=== PATIENT | male | born 1985 | race Caucasian/White ===

== ENCOUNTER 2017-04-06 21:16 | Observation (INO) ==
[2017-04-07] MEDS ORDERED: *HR* Morphine 2 MG/ML SYRINGE IVP PRN (00:30)
[2017-04-07] MEDS ORDERED: Naloxone 0.4 MG/ML INJ IVP PRN (00:30)
[2017-04-07] MEDS ORDERED: Ondansetron 4 MG/2 ML VIAL IVP PRN (00:30)
[2017-04-07] MEDS ORDERED: Nitroglycerin 0.4 MG TAB.SUBL SL PRN (00:33)
[2017-04-07 00:54] LABS: Basophils # 0.1 K/mcL (0.0-0.2); Basophils % 0.5 %; Eosinophils # 0.4 K/mcL (0.0-0.6); Eosinophils % 4.1 %; Hematocrit 41.6 % (37.5-50.1); Hemoglobin 14.2 g/dL (12.9-16.9); Immature Granulocytes % 1.1 % (0-4); Lymphocytes # 2.2 K/mcL (0.6-4.6); Mean Corpuscular HGB Conc 34.1 g/dL (31.6-35.5); Mean Corpuscular Hemoglobin 29.2 pg (28.0-33.3); Mean Corpuscular Volume 85.6 fL (83.0-100.0); Mean Platelet Volume 8.5 fL (9.4-12.4); Monocytes # 0.5 K/mcL (0.0-1.3); Monocytes % 5.5 %; Neutrophils # 6.2 K/mcL (1.6-8.9); Platelet Count 202 K/mcL (140-400); Red Blood Count 4.86 M/mcL (4.19-5.50); Red Cell Distribution Width 13.4 % (11.5-14.5); Segmented Neutrophils % 65.8 %
[2017-04-07 01:10] LABS: BUN/Creatinine Ratio 10 (6-26); Blood Urea Nitrogen 9 mg/dL (6-20); Calcium 8.9 mg/dL (8.6-10.3); Carbon Dioxide 27 mEq/L (23-29); Chloride 105 mEq/L (98-107); Chol/HDL Ratio 7.1 (0-4.9); Cholesterol 268 mg/dL (< 200); Glucose 131 mg/dL (70-105); HDL Cholesterol 38 mg/dL (40-59); LDL Cholesterol,Calculated 194 mg/dL (0-99); Magnesium 2.1 mg/dL (1.6-2.6); Osmolality,Calculated 286 (280-300); Phosphorous 2.6 mg/dL (2.7-4.5); Potassium 3.6 mEq/L (3.5-5.1); Sodium 138 mEq/L (136-145); Triglycerides 180 mg/dL (< 150); eGFR For African Americans > 60 (> 60); eGFR For Non-African Americans > 60 (> 60)
[2017-04-07] MEDS: cloNIDine HCl 0.1 MG TABLET PO SCH ×2 (02:08→10:05)
[2017-04-07] MEDS: *HR* Heparin 5,000 UNIT/ML VIAL SQ SCH ×2 (04:24→17:59)
--- NOTE | 2017-04-07 04:26 | Internal Med History&Physical ---
Date of Encounter: 04/07/17 Time of Encounter: 04:01 Assessment and Plan (1) Chest pain Current visit: Yes Status: Acute Typical chest pain given history, will admit to rule out ACS serial TNI x 2 have been negative will obtain nuclear stress test in am f/u 2D echo consider cardiology evaluation if the above tests are abnormal ASA, Statin, BB, nitroglycerin SL Prn will continue to closely monitor NPO after midnight for stress test in am Qualifiers: Chest pain type: unspecified Qualified Code(s): R07.9 - Chest pain, unspecified (2) Hypertension Current visit: Yes Status: Chronic Initially hypertensive, but BP controlled after receiving home dose of antihypertensive medications Repeat BP within acceptable range continue home meds Qualifiers: Hypertension type: essential hypertension Qualified Code(s): I10 - Essential (primary) hypertension (3) Hyperlipidemia Current visit: Yes Status: Chronic continue home meds Qualifiers: Hyperlipidemia type: unspecified Qualified Code(s): E78.5 - Hyperlipidemia , unspecified (4) Elevated d-dimer Current visit: Yes Status: Acute noted to have elevated D-dimer CTA chest negative for PE will obtain b/l LE venous doppler to rule out DVT (5) DVT prophylaxis Current visit: Yes Status: Acute Heparin SQ (6) Morbid obesity with BMI of 45.0-49.9, adult Current visit: Yes Status: Chronic Internal Medicine - H&P: HPI Chief complaint: transfer from [facility] for chest pain Admitted From: Intrahospital Transfer Plans for Post Hospital Care: Home History of present illness: Mr. Elise is a 31 year old male with PMH of HTN, HLD, morbid obesity, CAD who is transferred from [facility] for further management of chest pain. Pt reported of having substernal pressure like chest pain with radiation to the left jaw that was relieved by SL nitroglycerin. He reports of family history of both parents having DC in their 20s and 30s. States his last LHC was three years ago which reported normal coronary arteries. At this time, he is resting in bed and reports of mild chest discomfort which has improved since hospitalization. Denies any palpitations, shortness of breath, nausea, or vomiting at this time. Past Med Surg Social Fam HX - Past Medical History Medical history: GERD, hyperlipidemia, hypertension, migraine, other Psychiatric history: no psych history - Social History Smoking Status: Never smoker Smokeless Tobacco Status: No Alcohol use: none Drug use: none - Family History Mother Hx Family Medical Disorders: Yes (DVTs) Internal Medicine - H&P: Meds Allopurinol [Zyloprim 100 MG] 100 mg PO BID 05/03/15 [History] Atorvastatin [Lipitor] 80 mg PO HS 05/03/15 [History] Ergocalciferol (VITAMIN D2) [Vitamin D2 (50,000 UNIT)] 50,000 unit PO 2XW [History] Ezetimibe [Zetia] 10 mg PO DAILY 05/03/15 [History] Fexofenadine HCl 180 mg PO DAILY 05/03/15 [History] Icosapent Ethyl [Vascepa] 1 gm PO BID 05/03/15 [History] Nabumetone 750 mg PO BID 05/03/15 [History] Nitroglycerin [Nitrostat] 0.4 mg SL PRN PRN 05/03/15 [History] Ranitidine HCl [Zantac] 150 mg PO BID 05/03/15 [History] amLODIPine [Norvasc] 5 mg PO DAILY 05/03/15 [History] Carvedilol [Coreg] 1.5 tab PO BID 04/06/17 [History] DULoxetine [Cymbalta] 60 mg PO DAILY 04/06/17 [History] Fluticasone Propionate Nasal [Flonase] 2 spray NS DAILY 04/06/17 [History] Ketoconazole 2% CRM [Nizoral Cream] 1 appl TP BID 04/06/17 [History] Losartan [Cozaar] 100 mg PO DAILY 04/06/17 [History] Potassium Chloride [Klor-Con 10] 2 tab PO DAILY 04/06/17 [History] Torsemide [Torsemide] 2 tab PO DAILY 04/06/17 [History] Isosorbide MONOnitrate (24 HR) [Imdur] 30 mg PO DAILY 04/07/17 [History] cloNIDine HCl [Clonidine HCl] 0.2 mg PO BID 04/07/17 [History] 3 Allergy/AdvReac Type Severity Reaction Status Date / Time meperidine [From Demerol] Allergy See Verified 05/03/15 16:04 Comments tetanus toxoid, adsorbed Allergy See Verified 05/03/15 16:04 Comments tramadol Allergy Rash Verified 04/06/17 18:46 All Systems PM: A 10-system review of systems was performed and is negative for pertinent findings except as documented above in the HPI. - Constitutional Constitutional: as per HPI - Constitutional Vitals: Temp Pulse Resp BP Pulse Ox 99.4 F 92 16 163/111 98 04/06/17 23:46 04/06/17 23:46 04/06/17 23:46 04/06/17 23:46 04/06/17 23:46 General appearance: Present: cooperative, A&O X 3, morbidly obese, no acute distress, answers questions appropriately - Head Head exam: Present: atraumatic, normocephalic - Respiratory Respiratory exam: Present: CTAB. Absent: respiratory distress, wheezes, tachypnea - Cardiovascular Cardiovascular exam: Present: RRR, +S1, +S2. Absent: diastolic murmur, gallop, rubs, systolic murmur - GI/Abdominal GI/Abdominal exam: Present: normal bowel sounds, soft, no peritoneal signs. Absent: distended, tenderness - Extremities Exam Extremities exam: Present: pedal edema (b/l LE edema), warm, radial pulses palpable and symmetrical. Absent: calf tenderness - Neurological Exam Neurological exam: Present: alert, oriented X3 - Psychiatric Psychiatric exam: Present: normal affect, normal mood Internal Med - H&P Results - Labs CBC & Chem 7: 04/07/17 00:45 04/07/17 00:45 Labs: Short CBC 04/07/17 Range/Units 00:45 WBC 9.5 (4.3-11.1) K/mcL Hgb 14.2 (12.9-16.9) g/dL Hct 41.6 (37.5-50.1) % Plt Count 202 (140-400) K/mcL Neutrophils # 6.2 (1.6-8.9) K/mcL BMP 04/07/17 00:45 Sodium 138 Potassium 3.6 Chloride 105 Carbon Dioxide 27 BUN 9 Creatinine 0.86 Glucose 131 H Calcium 8.9 Cardiac Enzymes 04/07/17 Range/Units 00:45 Troponin I < 0.03 (< 0.04) ng/mL
[2017-04-07] MEDS ORDERED: Regadenoson 0.4 MG/5 ML SYRINGE IVP ONE (06:16)
[2017-04-07] MEDS: amLODIPine 5 MG TABLET PO SCH (10:05)
[2017-04-07] MEDS: Famotidine 20 MG TABLET PO SCH ×2 (10:05→20:05)
[2017-04-07] MEDS: Loratadine 10 MG TABLET PO SCH (10:05)
[2017-04-07] MEDS: Isosorbide MONOnitrate (24 HR) 30 MG TAB.ER.24H PO SCH (10:05)
[2017-04-07] MEDS: Fluticasone Propionate Nasal 50 MCG/SPRAY BOTTLE NS SCH (10:06)
[2017-04-07] MEDS: (Icosapent Ethyl [Vascepa] 1 GM) PO SCH ×2 (10:06→20:04)
[2017-04-07] MEDS: Ketoconazole 2% CRM 15 GM TUBE TP SCH ×2 (10:06→20:04)
[2017-04-07] MEDS: (Ezetimibe [Zetia] 10 MG) PO SCH (10:06)
[2017-04-07] MEDS: Torsemide 20 MG TABLET PO SCH (11:42)
[2017-04-07 16:08] LABS: Bilirubin,Urine Negative (Negative); Blood,Urine Negative (Negative); Clarity,Urine Clear (Clear); Color,Urine Yellow (Yellow); Glucose,Urine (UA) Normal (Normal); Ketones,Urine Negative (Negative); Leukocyte Esterase,Urine Negative (Negative); Nitrite,Urine Negative (Negative); Protein,Urine Negative (Neg-Trace); Specific Gravity,Urine 1.015 (1.010-1.025); Urobilinogen,Urine Normal (Normal)
[2017-04-07 16:17] LABS: Amphetamine Screen,Urine Negative ng/mL (Cutoff=1000); Barbiturate Screen,Urine Negative ng/mL (Cutoff=200); Benzodiazepines Screen,Urine Negative ng/mL (Cutoff=200); Cannabinoid Screen,Urine Negative ng/mL (Cutoff = 50); Cocaine Screen,Urine Negative ng/mL (Cutoff= 300); Opiate Screen,Urine Negative ng/mL (Cutoff=300); Phencyclidine Screen,Urine Negative ng/mL (Cutoff=25)
--- NOTE | 2017-04-07 18:02 | Internal Med Progress Note ---
Date of Encounter: 04/07/17 Time of Encounter: 11:05 - Assessment and plan (1) Bilateral lower extremity edema Current Visit: Yes Status: Acute Assessment and plan: Patient reports recent history over the last 2-3 weeks of lower extremity edema , dyspnea on exertion. He reports pain with walking recently and pain is greater in right leg and left leg. Patient had bilateral lower extremity venous Doppler that appeared negative for thrombus although imaging was limited due to edema. She does not appear to have any cellulitis or redness warmth drainage. Echocardiogram today shows LVEF of 60-65% with normal LV diastolic function, RV appears dilated function is normal. Continue torsemide 200 mg by mouth daily. (2) Chest pain Current Visit: Yes Status: Acute Assessment and plan: Patient reports 2 day history of intermittent left upper chest pain/tightness with intermittent sharp pains that radiate into his left arm and left jaw at times. Patient reports shortness of breath with exertion over the last 2 days. He denies any nausea, no diaphoresis no vomiting. Patient also reports a 40 pound weight gain in the last 6 months as well as dyspnea on exertion and bilateral lower extremity edema. Patient is on aspirin, statin, beta sheri, nitroglycerin sublingual when necessary for chest pain. Due to mid afternoon drowsiness and hypotension, have decreased the strength of the beta sheri to 12.5 mg by mouth. I also stopped clonidine. Patient is a 2 day stress test. He is completed day 1. Echocardiogram was completed today. Preserved ejection fraction normal LV DD, mild TR. Troponins are negative 3. Chest x-ray was negative. Patient is at high risk due to multiple comorbidities including hypertension, possible diabetes A1c will be drawn in the morning since no record of A1c being done since 2013. Patient with obesity. He is not a smoker and claims to not use alcohol. Continue telemetry Continue aspirin, statin, low-dose beta sheri, nitroglycerin as needed for chest pain Stress test completed tomorrow. Consider cardiology consultation based on results. Cardiac diet and lifestyle modifications. Echocardiogram 04/07/17 00:37 Impressions: LVEF 60-65%. Normal left ventricular diastolic function. RV size is not optimally visualized but appears dilated. Function is normal. Mild tricuspid regurgitation. No pulmonary hypertension. Left Ventricular Wall Motion: Rest Echo Findings All wall segments showed normal motion. Qualifiers: Chest pain type: unspecified Qualified Code(s): R07.9 - Chest pain, unspecified (3) Hypertension Current Visit: Yes Status: Chronic Assessment and plan: Blood pressures been well controlled. Patient had episode of hypotension and drowsiness today. He recovered and blood pressure has returned to normal. Beta sheri dosage has been decreased and medications will be held until he is returned to his baseline. Continue to monitor. Qualifiers: Hypertension type: essential hypertension Qualified Code(s): I10 - Essential (primary) hypertension (4) Hyperlipidemia Current Visit: Yes Status: Chronic Assessment and plan: Patient currently takes Lipitor 80 mg at bedtime. Lipid panel today reveals a cholesterol 268, triglycerides elevated dated at 180, HDL 38 low, LDL 194 high. We will consider adding fenofibrate at discharge. Patient and I discussed lifestyle modifications at length today. Qualifiers: Hyperlipidemia type: unspecified Qualified Code(s): E78.5 - Hyperlipidemia , unspecified (5) DVT prophylaxis Current Visit: Yes Status: Acute Assessment and plan: Heparin subcutaneous daily. Patient is ambulatory in the room. (6) Morbid obesity with BMI of 45.0-49.9, adult Current Visit: Yes Status: Chronic - Time Spent With Patient less than 15 minutes - Subjective Interval history: Patient was seen and evaluated 11:05 AM. He was alert, awake. He is a 2 day stress test and had returned from bilateral lower extremity Dopplers, stress test, echocardiogram. He is alert and awake and answer questions appropriately. Reports left upper chest pain and tightness and sharpwith radiation the left arm and left jaw. He also reports a 40 pound weight gain over the last 6 months. He reports bilateral lower extremity edema, legs have doubled in size over the last 2 weeks. He has pain with walking. I walked with him in the hallway later in the afternoon due to hypotension and drowsiness. Patient's gait was steady though patient reported pain in the legs with ambulation. He denied any headache. Denies any nausea or vomiting or abdominal pain. Denies any dizziness or chest pain. Patient had had new medication ordered, beta sheri, Coreg 37-1/2 mg today. I have decreased it to 12.5 mg and have requested nursing to hold other medications until hypotension is resolved. - Constitutional Vitals: Temp Pulse Resp BP Pulse Ox 97.9 F 59 16 100/61 96 04/07/17 15:28 04/07/17 15:28 04/07/17 15:28 04/07/17 15:28 04/07/17 15:28 General appearance: Present: cooperative, A&O X 3, morbidly obese, pleasant, no acute distress, answers questions appropriately - Head Head exam: Present: atraumatic, normal inspection, normocephalic - Eye Eye exam: Present: PERRL, conjuntiva pink, sclera anicteric Pupils: Present: PERRL - Neck Neck exam general surgery: Present: supple, trachea midline. Absent: lymphadenopathy, tenderness - Respiratory Respiratory exam: Present: CTAB. Absent: accessory muscle use, rales, rhonchi, wheezes - Cardiovascular Cardiovascular exam: Present: RRR, +S1, +S2, tachycardia. Absent: diastolic murmur, gallop, rubs, systolic murmur - GI/Abdominal GI/Abdominal exam: Present: distended, normal bowel sounds, soft, no peritoneal signs. Absent: hepatomegaly, tenderness - Extremities Exam Extremities exam: Present: pedal edema, tenderness, warm, radial pulses palpable and symmetrical. Absent: calf tenderness, cyanotic Additional comments: Patient with +4 nonpitting edema to bilateral lower extremities. Tender to palpation. - Neurological Exam Neurological exam: Present: alert, oriented X3, no focal deficits. Absent: altered, facial droop, speech deficit - Skin Skin exam: Present: dry, intact, normal color, warm. Absent: rash Internal Medicine: Result - Labs CBC & Chem 7: 04/07/17 00:45 04/07/17 00:45 Labs: Short CBC 04/07/17 Range/Units 00:45 WBC 9.5 (4.3-11.1) K/mcL Hgb 14.2 (12.9-16.9) g/dL Hct 41.6 (37.5-50.1) % Plt Count 202 (140-400) K/mcL Neutrophils # 6.2 (1.6-8.9) K/mcL BMP 04/07/17 00:45 Sodium 138 Potassium 3.6 Chloride 105 Carbon Dioxide 27 BUN 9 Creatinine 0.86 Glucose 131 H Calcium 8.9 Cardiac Enzymes 04/07/17 04/07/17 04/07/17 Range/Units 00:45 06:38 12:15 Troponin I < 0.03 < 0.03 < 0.03 (< 0.04) ng/mL Urine 04/07/17 Range/Units 15:50 Urine Color Yellow (Yellow) Urine Clarity Clear (Clear) Urine pH 7.0 (5.0-8.0) pH Units Ur Specific [place] 1.015 (1.010-1.025) Urine Protein Negative (Neg-Trace) mg/dL Urine Glucose (UA) Normal (Normal) mg/dL - Impressions Impressions Echocardiogram 04/07/17 00:37 Impressions: LVEF 60-65%. Normal left ventricular diastolic function. RV size is not optimally visualized but appears dilated. Function is normal. Mild tricuspid regurgitation. No pulmonary hypertension. Left Ventricular Wall Motion: Rest Echo Findings All wall segments showed normal motion. Findings: Study Quality * Technically adequate exam. ECG Findings * Normal sinus rhythm. Left Ventricle * LVEF 60-65%. * Normal LV chamber size, wall thickness and function. * Normal left ventricular diastolic function. Right Ventricle * RV size is not optimally visualized but appears dilated. Function is normal. Left Atrium * Normal left atrial size. Right Atrium * Mildly dilated right atrium. Aortic Valve * No aortic regurgitation. * Aortic valve not well visualized. * No aortic stenosis. Mitral Valve * Normal mitral valve structure. * No mitral regurgitation. * No mitral stenosis. Tricuspid Valve * Tricuspid valve not well visualized. * Mild tricuspid regurgitation. * Estimated RA pressure is 3 mmHg. * Estimated RVSP is 23 mmHg. * No pulmonary hypertension. Pulmonic Valve * Pulmonic valve is not well visualized. * No pulmonic stenosis. * No pulmonic regurgitation. Pulmonary Artery * Pulmonary artery not well visualized. Aorta * Aortic root and ascending aorta are suboptimally visualized. Interatrial Septum * Interatrial septum not well evaluated. Pericardium * There is no pericardial effusion present. IVC * Normal IVC dimensions and inspiratory collapse. Consult Discharge Plan - Plan Referrals: Nicholas Edwards, [employer] [Primary Care Provider] -
[2017-04-08] MEDS: *HR* Heparin 5,000 UNIT/ML VIAL SQ SCH (05:15)
[2017-04-08 05:17] LABS: Hemoglobin A1C 6.1 %
[2017-04-08 05:27] LABS: BUN/Creatinine Ratio 13 (6-26); Blood Urea Nitrogen 15 mg/dL (6-20); Calcium 8.5 mg/dL (8.6-10.3); Carbon Dioxide 29 mEq/L (23-29); Chloride 106 mEq/L (98-107); Glucose 138 mg/dL (70-105); Osmolality,Calculated 291 (280-300); Sodium 139 mEq/L (136-145); eGFR For African Americans > 60 (> 60); eGFR For Non-African Americans > 60 (> 60)
[2017-04-08] MEDS: Ketoconazole 2% CRM 15 GM TUBE TP SCH (08:29)
[2017-04-08] MEDS: (Icosapent Ethyl [Vascepa] 1 GM) PO SCH (08:29)
[2017-04-08] MEDS: amLODIPine 5 MG TABLET PO SCH (08:29)
[2017-04-08] MEDS: (Ezetimibe [Zetia] 10 MG) PO SCH (08:29)
[2017-04-08] MEDS: Isosorbide MONOnitrate (24 HR) 30 MG TAB.ER.24H PO SCH (08:41)
[2017-04-08] MEDS: Loratadine 10 MG TABLET PO SCH (08:41)
[2017-04-08] MEDS: Fluticasone Propionate Nasal 50 MCG/SPRAY BOTTLE NS SCH (08:42)
[2017-04-08] MEDS: Famotidine 20 MG TABLET PO SCH (08:42)
[2017-04-08] MEDS: Torsemide 20 MG TABLET PO SCH (08:55)
[2017-04-08 11:34] VITALS: BP 109/69
--- NOTE | 2017-04-08 12:24 | Discharge Summary ---
Date of Encounter: 04/08/17 Time of Encounter: 11:00 - Discharge Diagnosis (1) Bilateral lower extremity edema Priority: Primary Status: Chronic Comments: Patient reports recent history over the last 2-3 weeks of worsening lower extremity edema, dyspnea on exertion. He reports pain with walking recently and pain is greater in right leg and left leg. Patient normally has chronic lower extremity edema bilaterally. Edema has actually improved today, 3+ pitting. Patient reports decreased pain in bilateral lower extremities. Improvement is most likely due to medications being given on time appropriately and improved diet. Patient admits to noncompliance with medications, as well as diet. Patient had bilateral lower extremity venous Doppler that appeared negative for thrombus although imaging was limited due to edema. he does not appear to have any cellulitis or redness warmth drainage. Echocardiogram today shows LVEF of 60-65% with normal LV diastolic function, RV appears dilated function is normal. Continue torsemide 200 mg by mouth daily. (2) Chest pain Priority: Secondary Status: Acute Comments: Patient reports 2 day history of intermittent left upper chest pain/tightness prior to admission with intermittent sharp pains that radiate into his left arm and left jaw at times. Patient reports shortness of breath with exertion over the last 2 days. He denies any nausea, no diaphoresis no vomiting. Patient also reports a 40 pound weight gain in the last 6 months as well as dyspnea on exertion and bilateral lower extremity edema. Patient is on aspirin, statin, beta sheri, nitroglycerin sublingual when necessary for chest pain. Due to mid afternoon drowsiness and hypotension, have decreased the strength of the beta sheri to 12.5 mg by mouth and clonidine was stopped. Blood pressure has returned to normal. Stress test was negative for ischemia or infarct with a gated EF of greater than 70%. Echocardiogram showed Preserved ejection fraction normal LV DD, mild TR. Troponins are negative 3. Chest x-ray was negative. Patient is at high risk due to multiple comorbidities including hypertension, A1c 6.1%. Patient with obesity. He is not a smoker and claims to not use alcohol. Unclear etiology of chest pain at this time, he has had none since arrival. Shortness of breath and weight gain most likely due to poor diet, noncompliance with medications, and lack of physical activity and deconditioning. Patient I had a lengthy discussion about diet changes and lifestyle modifications including adding exercise to routine slowly. Continue aspirin, statin, low-dose beta sheri Cardiac diet and lifestyle modifications. Echocardiogram 04/07/17 00:37 Impressions: LVEF 60-65%. Normal left ventricular diastolic function. RV size is not optimally visualized but appears dilated. Function is normal. Mild tricuspid regurgitation. No pulmonary hypertension. Left Ventricular Wall Motion: Rest Echo Findings All wall segments showed normal motion. Qualifiers: Chest pain type: unspecified Qualified Code(s): R07.9 - Chest pain, unspecified (3) Hypertension Priority: Secondary Status: Chronic Comments: Chronic. Patient had episode of hypotension yesterday. Carvedilol dose was decreased from 37-1/2-12 and half milligrams. Blood pressures returned within normal limits. Clonidine was also stopped due to risk of rebound hypertension. Qualifiers: Hypertension type: essential hypertension Qualified Code(s): I10 - Essential (primary) hypertension (4) Hyperlipidemia Priority: Secondary Status: Chronic Comments: Chronic. Continue home medications. Qualifiers: Hyperlipidemia type: unspecified Qualified Code(s): E78.5 - Hyperlipidemia , unspecified (5) DVT prophylaxis Priority: Secondary Status: Acute Comments: Heparin subcutaneous daily. (6) Morbid obesity with BMI of 45.0-49.9, adult Priority: Secondary Status: Chronic Comments: Chronic. Patient I had lengthy discussion regarding lifestyle modifications and diet changes. (7) Prediabetes Priority: Secondary Status: Acute Comments: A1c 6.1%. Education completed on increasing activity and following low calorie, low carbohydrate diet. - Discharge Medications Home Medications: Allopurinol [Zyloprim 100 MG] 100 mg PO BID 05/03/15 [History] Atorvastatin [Lipitor] 80 mg PO HS 05/03/15 [History] Ezetimibe [Zetia] 10 mg PO DAILY 05/03/15 [History] Fexofenadine HCl 180 mg PO DAILY 05/03/15 [History] Icosapent Ethyl [Vascepa] 1 gm PO BID 05/03/15 [History] Nabumetone 750 mg PO BID 05/03/15 [History] Nitroglycerin [Nitrostat] 0.4 mg SL PRN PRN 05/03/15 [History] Ranitidine HCl [Zantac] 150 mg PO BID 05/03/15 [History] amLODIPine [Norvasc] 5 mg PO DAILY 05/03/15 [History] Carvedilol [Coreg] 1.5 tab PO BID 04/06/17 [History] DULoxetine [Cymbalta] 60 mg PO DAILY 04/06/17 [History] Fluticasone Propionate Nasal [Flonase] 2 spray NS DAILY 04/06/17 [History] Ketoconazole 2% CRM [Nizoral Cream] 1 appl TP BID 04/06/17 [History] Losartan [Cozaar] 100 mg PO DAILY 04/06/17 [History] Potassium Chloride [Klor-Con 10] 2 tab PO DAILY 04/06/17 [History] Torsemide 2 tab PO DAILY 04/06/17 [History] Isosorbide MONOnitrate (24 HR) [Imdur] 30 mg PO DAILY 04/07/17 [History] Ergocalciferol (VITAMIN D2) [Drisdol (50,000 Unit)] 50,000 unit PO 2XW capsule 04/08/17 [Rx] Allergies/Adverse Reactions: 3 Allergy/AdvReac Type Severity Reaction Status Date / Time meperidine [From Demerol] Allergy See Verified 05/03/15 16:04 Comments tetanus toxoid, adsorbed Allergy See Verified 05/03/15 16:04 Comments tramadol Allergy Rash Verified 04/06/17 18:46 Procedures/tests Complete & Pending: Procedures Performed prior 72 hours Category Date Time Status NM adelfo perf SPECT multi [NM] Routine Exams 04/07/17 00:35 Taken EV echocardiogram Routine Y 04/07/17 00:37 Completed SP pharm nuclear stress Routine Y 04/07/17 07:30 Completed Venous Doppler [EV venous imaging LE BI] Stat Y 04/07/17 04:33 Completed Date of admission: 04/06/17 23:39 Primary care physician: Nicholas Edwards CNP Discharging clinician: Yanci Bhatti Anticipated date of discharge: 04/08/17 - Patient Status Disposition: Home, Self-Care Condition: Good Functional capacity at discharge: independent ambulation Overall status at discharge: patient is progressing back to baseline - Discharge Instructions Follow Up With: Nicholas Edwards CNP [Primary Care Provider] - 04/16/17 3:20 pm Additional Instructions: Please return to the emergency room if her symptoms return or worsen, or if you have any other problems or concerns. Resume your normal home medications. Stop clonidine. Monitor your blood pressure daily Follow-up with your primary care provider within the next week for recheck. Increase your activity and eat a heart healthy, low sugar diet. - Diet and Activity Activity: increase activity as tolerated Diet: diabetic diet, low fat, low cholesterol Hospital course: Mr. Elise is a 31 year old male with past medical history of hypertension, hyperlipidemia, morbid obesity, chronic bilateral lower extremity edema. Please see assessment and plan for hospital course. - Time Spent with Patient Total time spent providing and/or coordinating discharge services: Less than 30 minutes - Constitutional Vitals: Temp Pulse Resp BP Pulse Ox 97.5 F L 68 18 109/69 95 04/08/17 11:33 04/08/17 11:33 04/08/17 11:33 04/08/17 11:33 04/08/17 11:33 General appearance: Present: cooperative, A&O X 3, morbidly obese, pleasant, no acute distress, answers questions appropriately - Head Head exam: Present: atraumatic, normal inspection, normocephalic - Eye Eye exam: Present: normal appearance, conjuntiva pink, sclera anicteric - Neck Neck exam general surgery: Present: normal inspection, supple, trachea midline. Absent: lymphadenopathy, tenderness - Respiratory Respiratory exam: Present: CTAB. Absent: accessory muscle use, chest wall tenderness, rales, respiratory distress, rhonchi, wheezes - Cardiovascular Cardiovascular exam: Present: RRR, +S1, +S2. Absent: diastolic murmur, gallop, rubs, systolic murmur - GI/Abdominal GI/Abdominal exam: Present: distended, normal bowel sounds, soft, no peritoneal signs. Absent: hepatomegaly, tenderness Additional comments: Obese - Extremities Exam Extremities exam: Present: pedal edema, warm, radial pulses palpable and symmetrical. Absent: calf tenderness, cyanotic, normal capillary refill, normal inspection, tenderness - Neurological Exam Neurological exam: Present: alert, oriented X3, no focal deficits. Absent: facial droop, speech deficit - Skin Skin exam: Present: dry, intact, normal color, warm. Absent: rash
== END 2017-04-08 13:46 | disposition home or self-care (01) ==
LOC: 3BNU
PROVIDERS: ADMIT Internal Medicine; ATTEND Registered Nurse